=== PATIENT | male | born 1990 | race Caucasian/White ===

== ENCOUNTER 2017-02-28 05:02 | Emergency (ER) | payer OTHER ==
[2017-02-28] MEDS ORDERED: Nitroglycerin 0.4 MG TAB (25 Tab Bottle) ONE (05:38)
[2017-02-28 05:39] LABS: #Basophils 0.1 thou/uL (0.0-0.2); #Eosinphils 0.3 thou/uL (0.0-0.7); #Lymphocytes 2.7 thou/uL (1.20-3.40); #Monocytes 0.4 thou/uL (0.11-0.59); #Neutrophils 5.8 thou/uL (1.40-6.50); %Basophils 1.3 % (0.0-1.0); %Eosinophils 3.3 % (0.0-10.0); %Lymphocytes 28.9 % (21.0-51.0); %Monocytes 4.6 % (0.0-10.0); %Neutrophils 61.9 % (42.0-75.0); Hemoglobin 15.3 g/dL (14.0-18.0); Mean Corpuscular HGB CONC 33.8 g/dL (32.0-36.0); Mean Corpuscular Volume 85.8 fl (80.0-94.0); Mean Platelet Volume 7.7 fL (7.4-10.4); Platelet Count 190 thou/uL (130-400); RBC Distribution Width 12.2 % (11.5-14.5); Red Blood Cell (RBC) Count 5.28 mill/uL (4.70-6.10); White Blood Cell (WBC) Count 9.4 thou/uL (4.8-10.8)
[2017-02-28 05:51] LABS: ALT (SGPT) 18 U/L (0-55); AST (SGOT) 16 U/L (5-34); Albumin 4.4 g/dL (3.5-5.0); Alkaline Phosphatase 67 U/L (40-150); Anion Gap 14 mmol/L (10-20); BUN (Urea Nitrogen) 12 mg/dL (8.9-20.6); Bilirubin, Total 0.2 mg/dL (0.2-1.2); CK (CPK) 57 U/L (30-200); CKMB 0.9 ng/mL (0-6.6); Calc. Creatinine Clearance 0 mL/min (70-130); Calcium 9.2 mg/dL (7.8-10.44); Carbon Dioxide 24 mmol/L (22-29); Chloride 105 mmol/L (98-107); Estimated GFR-MDRD Greater than 90; Globulin 2.6 g/dL (2.4-3.5); Glucose 90 mg/dL (70-105); Lipase 14 U/L (8-78); Potassium 3.8 mmol/L (3.5-5.1); Sodium 139 mmol/L (136-145); Troponin I Less than 0.010 ng/mL (< 0.028)
[2017-02-28] MEDS ORDERED: Pantoprazole 40 MG VIAL ONE (05:57)
[2017-02-28] MEDS ORDERED: Nitroglycerin 2% Ointment 1 INCH/1 GM Packet ONE (05:57)
--- NOTE | 2017-02-28 07:46 | RAD ---
PORTABLE CHEST: DATED: 02/28/17. FINDINGS: An AP portable film at 0517 shows a normal-sized heart and clear lungs. No infiltrate or effusion w as seen. There is no vascular congestion or edema. The lungs are clear. The bony structures were unremarkable. IMPRESSION: No acute thoracic findings. POS: HOME
== END 2017-02-28 06:32 | disposition short-term general hospital (02) ==
LOC: BURERS 05:02
DX: I48.91 Unspecified atrial fibrillation (principal); I45.6 Pre-excitation syndrome; F31.9 Bipolar disorder, unspecified; F17.210 Nicotine dependence, cigarettes, uncomplicated; Z79.82 Long term (current) use of aspirin
CPT/HCPCS: 71010; 80053; 82550; 82553; 83690; 84484; 85025; 93005; C9113

== ENCOUNTER 2020-08-30 11:30 | Emergency (ER) | payer SELFPAY ==
[2020-08-30] MEDS ORDERED: Bacitracin 1 PK ONE (11:58)
[2020-08-30] MEDS ORDERED: Acetaminophen 500 MG TAB ONE (12:15)
[2020-08-30] MEDS ORDERED: Boostrix 0.5 ML VIAL ONE (12:15)
--- NOTE | 2020-08-30 16:24 | RAD ---
RIGHT FOOT 3 VIEWS: Date: 08/30/2020 No fracture or periosteal reaction was seen. All bones appeared intact, including the fifth metatarsa l. IMPRESSION: No acute findings. POS: HOME
== END 2020-08-30 12:44 | disposition home or self-care (01) ==
LOC: BURERS 11:30
DX: S91.311A Laceration without foreign body, right foot, initial encounter (principal); L03.115 Cellulitis of right lower limb; F31.9 Bipolar disorder, unspecified; F17.210 Nicotine dependence, cigarettes, uncomplicated; Z79.899 Other long term (current) drug therapy; W26.9XXA Contact with unspecified sharp object(s), initial encounter
CPT/HCPCS: 90715